=== PATIENT | male | born 2000 | race Caucasian/White ===

== ENCOUNTER 2018-09-21 12:00 | Emergency (ER) | payer OTHER, BC ==
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
[2018-09-21 13:53] VITALS: BP 128/77
== END 2018-09-21 13:53 | disposition home or self-care (01) ==
DX: S29.011A Strain of muscle and tendon of front wall of thorax, initial encounter (principal); S19.9XXA Unspecified injury of neck, initial encounter; S89.92XA Unspecified injury of left lower leg, initial encounter; V49.59XA Passenger injured in collision with other motor vehicles in traffic accident, initial encounter; W22.11XA Striking against or struck by driver side automobile airbag, initial encounter; Y92.9 Unspecified place or not applicable; Y99.9 Unspecified external cause status; Y93.9 Activity, unspecified